=== PATIENT | male | born 1995 | race American Indian/Alaskan Native ===

== ENCOUNTER 2020-08-02 11:36 | Outpatient (CLI) | payer OTHER ==
--- NOTE | 2020-08-02 14:58 | XRay Report ---
Pelvis and bilateral hips 3 views INDICATION: Pain FINDINGS: Right hip arthroplasty appears satisfactory in position. The femur distal to the arthroplas ty intramedullary component is not seen. There is advanced degenerative change in left hip with possi ble fracture deformity the left femoral neck of uncertain age. Advanced degenerative change in left h ip. IMPRESSION: 1. Irregularity in the left femoral neck with shortening and irregularity throughout the head and nec k. Findings could represent fracture deformity possibly chronic. Correlation with patient's pain and exam. 2. Right hip arthroplasty. Lumbar spine 3 views INDICATION: Pain FINDINGS: Alignment appears normal. Sacrum and sacroiliac joints appear normal. No acute fracture. Signer Name: Robret Rodriguez MD Signed: 08/02/2020 2:54 PM Workstation Name: [id number]
== END 2020-08-02 11:37 | disposition home or self-care (01) ==
LOC: XRAY 11:36
PROVIDERS: ATTEND Internal Medicine
DX: M16.12 Unilateral primary osteoarthritis, left hip (principal); M54.5 Low back pain; Z96.641 Presence of right artificial hip joint
CPT/HCPCS: 72100; 73521